=== PATIENT | male | born 1990 | race Caucasian/White ===

== ENCOUNTER 2017-04-03 11:14 | Inpatient (IN) | payer OTHER ==
[~2017-04-03] VITALS: Ht 177.8 cm; Wt 90.3 kg
[2017-04-03] MEDS ORDERED: ACETAMINOPHEN 325 MG TABLET PO PRN (13:30)
[2017-04-03] MEDS ORDERED: LACTULOSE 20 GM/30 ML SOLUTION UDCUP PO PRN (14:00)
[2017-04-03] MEDS ORDERED: BISACODYL 5 MG EC TABLET PO PRN (14:00)
[2017-04-03] MEDS ORDERED: ONDANSETRON HCL 4 MG TABLET PO PRN (14:30)
[2017-04-03] MEDS ORDERED: MINERAL OIL/PETROLATUM,WHITE PF 3.5 GM OPHTHALMIC OINTMENT OU PRN (14:30)
[2017-04-03] MEDS: OxyCODONE HCL 5 MG IR TABLET PO SCH ×2 (14:49→19:28)
[2017-04-03 14:50] VITALS: BP 132/86
[2017-04-03 15:50] VITALS: BP 146/78
[2017-04-03] MEDS: HEPARIN SODIUM,PORCINE 5,000 UNITS/ML VIAL SQ SCH (15:58)
[2017-04-03] MEDS: SODIUM CHLORIDE 1 GM TABLET PO SCH ×2 (15:59→20:15)
[2017-04-03] MEDS: IBUPROFEN 400 MG TABLET PO SCH (17:28)
[2017-04-03] MEDS ORDERED: SODIUM CL IRRIG SOLN BOTTLE 250 ML IRRIG ONE (19:22)
[2017-04-03 20:00] VITALS: BP 143/83
[2017-04-03] MEDS: -LIDODERM PATCH NOTE- MISC SCH ×2 (20:15)
[2017-04-03] MEDS: METOPROLOL TARTRATE 50 MG TABLET PO SCH (20:15)
[2017-04-03] MEDS: SENNA 187 MG TABLET PO SCH (20:15)
[2017-04-03] MEDS: DiphenhydrAMINE HCL 25 MG CAPSULE PO PRN (21:09)
[2017-04-03 21:21] LABS: APPEARANCE,URINE CLEAR (CLEAR); GLUCOSE, URINE (UA) NEGATIVE (NEGATIVE); KETONES,URINE NEGATIVE (NEGATIVE); LEUKOCYTE ESTERASE ,URINE NEGATIVE (NEGATIVE); OCCULT BLOOD,URINE NEGATIVE (NEGATIVE); PROTEIN,URINE NEGATIVE (NEGATIVE)
[2017-04-03 21:23] LABS: ADD UA MICROSCOPIC NO
[2017-04-04] VITALS: BP 142/76
[2017-04-04] MEDS: HEPARIN SODIUM,PORCINE 5,000 UNITS/ML VIAL SQ SCH ×4 (00:20→23:10)
[2017-04-04] MEDS: OxyCODONE HCL 5 MG IR TABLET PO SCH ×2 (00:20→06:00)
[2017-04-04] MEDS: IBUPROFEN 400 MG TABLET PO SCH ×5 (00:20→23:10)
[2017-04-04] MEDS: LORazepam 0.5 MG TABLET PO PRN ×2 (02:42→20:46)
[2017-04-04 06:57] LABS: BASOPHILS # (AUTO) 0.05 K/uL (0.00-0.20); BASOPHILS % (AUTO) 0.6 % (0.0-2.0); EOSINOPHILS # (AUTO) 0.13 K/uL (0.00-0.70); HEMATOCRIT 28.5 % (41-53); HEMOGLOBIN 9.3 g/dL (13.5-17.5); LYMPHOCYTES # (AUTO) 1.7 K/uL (1.0-4.8); LYMPHOCYTES % (AUTO) 19.2 % (22.0-44.0); MEAN CORPUSCULAR HEMOGLOBIN 28.5 pg (26.0-34.0); MEAN CORPUSCULAR HGB CONC 32.6 G/dL (31.0-37.0); MEAN CORPUSCULAR VOLUME 87 fL (80-100); MONOCYTES # (AUTO) 0.7 K/uL (0.1-1.0); MONOCYTES % (AUTO) 7.7 % (2.0-9.0); NEUTROPHILS # (AUTO) 6.1 K/uL (1.8-7.7); NEUTROPHILS % (AUTO) 71.1 % (40.0-70.0); PLATELET COUNT (AUTO) 295 K/uL (150-450); RED BLOOD CELL COUNT(AUTO) 3.26 MIL/uL (4.50-5.90); RED CELL DISTRIBUTION WIDTH 16.7 % (11.5-14.5); WHITE BLOOD COUNT (AUTO) 8.6 K/uL (4.5-11.0)
[2017-04-04 07:09] LABS: ALANINE AMINOTRANSFERASE 40 U/L (12-78); ALBUMIN 2.6 g/dL (3.4-5.0); ANION GAP 8 mmol/L (8-16); ASPARTATE AMINOTRANSFERASE 15 U/L (15-37); BILIRUBIN,TOTAL 0.7 mg/dL (0.1-1.0); CARBON DIOXIDE 28 mmol/L (22-29); CHLORIDE 100 mmol/L (98-107); CREATININE 0.79 mg/dL (0.60-1.30); GLOMERULAR FILTR. RATE CALC > 60 mL/min (>60); POTASSIUM 3.9 mmol/L (3.5-5.1); SODIUM SERUM 136 mmol/L (136-145); TOTAL PROTEIN, SERUM 7.2 g/dL (6.4-8.2); UREA NITROGEN, BLOOD 11 mg/dL (7-18)
[2017-04-04 07:35] VITALS: BP 142/76
[2017-04-04] MEDS: DOCUSATE SODIUM 100 MG CAPSULE PO SCH ×2 (09:21→20:40)
[2017-04-04] MEDS: OxyCODONE HCL 10 MG ER TABLET PO SCH ×2 (09:21→20:39)
[2017-04-04] MEDS: METOPROLOL TARTRATE 50 MG TABLET PO SCH ×2 (10:13→20:40)
[2017-04-04] MEDS: LIDOCAINE HCL 5% TRANSDERMAL PATCH TD SCH (10:13)
[2017-04-04] MEDS: SODIUM CHLORIDE 1 GM TABLET PO SCH ×3 (10:13→20:39)
[2017-04-04] MEDS: ACETIC ACID 0.25% 1000 ML IRRIGATION SOLUTION IRRIG SCH (10:18)
[2017-04-04] MEDS: OxyCODONE HCL 5 MG IR TABLET PO PRN ×2 (11:25→21:57)
[2017-04-04 15:25] VITALS: BP 130/71
[2017-04-04 20:14] VITALS: BP 145/89
[2017-04-04] MEDS: SENNA 187 MG TABLET PO SCH (20:40)
[2017-04-04] MEDS: -LIDODERM PATCH NOTE- MISC SCH ×2 (20:40)
[2017-04-04] MEDS: DiphenhydrAMINE HCL 25 MG CAPSULE PO PRN (20:47)
[2017-04-04 23:46] VITALS: BP 140/79
[2017-04-05] VITALS (7 sets, daily range): BP systolic 140–160; BP diastolic 77–92
[2017-04-05] MEDS: IBUPROFEN 400 MG TABLET PO SCH ×4 (05:01→23:37)
[2017-04-05] MEDS: OxyCODONE HCL 5 MG IR TABLET PO PRN ×2 (07:42→21:56)
[2017-04-05] MEDS: HEPARIN SODIUM,PORCINE 5,000 UNITS/ML VIAL SQ SCH ×3 (08:00→10:16)
[2017-04-05] MEDS: SODIUM CHLORIDE 1 GM TABLET PO SCH ×3 (10:17→21:05)
[2017-04-05] MEDS: METOPROLOL TARTRATE 50 MG TABLET PO SCH ×2 (10:17→21:05)
[2017-04-05] MEDS: OxyCODONE HCL 10 MG ER TABLET PO SCH ×2 (10:17→21:05)
[2017-04-05] MEDS: DOCUSATE SODIUM 100 MG CAPSULE PO SCH ×2 (10:17→21:05)
[2017-04-05] MEDS: LIDOCAINE HCL 5% TRANSDERMAL PATCH TD SCH (10:17)
[2017-04-05] MEDS: ACETIC ACID 0.25% 1000 ML IRRIGATION SOLUTION IRRIG SCH (10:19)
[2017-04-05] MEDS: SENNA 187 MG TABLET PO SCH (21:05)
[2017-04-05] MEDS: ENOXAPARIN SODIUM 30 MG/0.3 ML PF SYRINGE SQ SCH (21:06)
[2017-04-05] MEDS: -LIDODERM PATCH NOTE- MISC SCH ×2 (22:22)
[2017-04-05] MEDS: TEMAZEPAM 15 MG CAPSULE PO PRN (22:32)
[2017-04-06] MEDS: IBUPROFEN 400 MG TABLET PO SCH ×4 (05:31→23:40)
[2017-04-06 07:00] VITALS: BP 154/93
[2017-04-06 07:20] LABS: ANION GAP 10 mmol/L (8-16); CALCIUM, TOTAL 9.1 mg/dL (8.8-10.5); CARBON DIOXIDE 26 mmol/L (22-29); CHLORIDE 101 mmol/L (98-107); CREATININE 0.78 mg/dL (0.60-1.30); GLOMERULAR FILTR. RATE CALC > 60 mL/min (>60); POTASSIUM 3.8 mmol/L (3.5-5.1); SODIUM SERUM 137 mmol/L (136-145); UREA NITROGEN, BLOOD 7 mg/dL (7-18)
[2017-04-06] MEDS: ASCORBIC ACID 500 MG TABLET PO SCH (09:14)
[2017-04-06] MEDS: OxyCODONE HCL 5 MG IR TABLET PO PRN ×2 (09:15→12:46)
[2017-04-06] MEDS: DOCUSATE SODIUM 100 MG CAPSULE PO SCH ×2 (09:15→21:00)
[2017-04-06] MEDS: ENOXAPARIN SODIUM 30 MG/0.3 ML PF SYRINGE SQ SCH ×2 (09:16→21:01)
[2017-04-06] MEDS: METOCLOPRAMIDE HCL 10 MG TABLET PO PRN (09:18)
[2017-04-06] MEDS: LIDOCAINE HCL 5% TRANSDERMAL PATCH TD SCH (09:18)
[2017-04-06] MEDS: SODIUM CHLORIDE 1 GM TABLET PO SCH ×3 (09:18→21:01)
[2017-04-06] MEDS: ZINC SULFATE 220 MG CAPSULE PO SCH (09:19)
[2017-04-06] MEDS: METOPROLOL TARTRATE 50 MG TABLET PO SCH ×2 (09:21→21:00)
[2017-04-06] MEDS: MULTIVITAMINS WITH MINERALS, THERAPEUTIC TABLET PO SCH (09:21)
[2017-04-06] MEDS: OxyCODONE HCL 10 MG ER TABLET PO SCH ×2 (09:24→21:00)
[2017-04-06] MEDS: ACETIC ACID 0.25% 1000 ML IRRIGATION SOLUTION IRRIG SCH (09:25)
[2017-04-06 16:02] VITALS: BP 147/98
[2017-04-06 20:56] VITALS: BP 152/86
[2017-04-06] MEDS: SENNA 187 MG TABLET PO SCH (21:00)
[2017-04-06] MEDS: -LIDODERM PATCH NOTE- MISC SCH ×2 (21:00)
[2017-04-06] MEDS: TEMAZEPAM 15 MG CAPSULE PO PRN (23:40)
[2017-04-07 00:27] VITALS: BP 152/86
[2017-04-07] MEDS: OxyCODONE HCL 5 MG IR TABLET PO PRN ×4 (01:40→23:32)
[2017-04-07] MEDS: IBUPROFEN 400 MG TABLET PO SCH ×4 (06:31→23:31)
[2017-04-07 07:54] VITALS: BP 127/85
[2017-04-07] MEDS: OxyCODONE HCL 10 MG ER TABLET PO SCH ×2 (13:08→21:29)
[2017-04-07] MEDS: DOCUSATE SODIUM 100 MG CAPSULE PO SCH ×2 (13:08→21:29)
[2017-04-07] MEDS: ZINC SULFATE 220 MG CAPSULE PO SCH (13:08)
[2017-04-07] MEDS: METOPROLOL TARTRATE 50 MG TABLET PO SCH ×2 (13:08→21:30)
[2017-04-07] MEDS: SODIUM CHLORIDE 1 GM TABLET PO SCH ×3 (13:08→21:30)
[2017-04-07] MEDS: MULTIVITAMINS WITH MINERALS, THERAPEUTIC TABLET PO SCH (13:08)
[2017-04-07] MEDS: ASCORBIC ACID 500 MG TABLET PO SCH (13:08)
[2017-04-07] MEDS: LIDOCAINE HCL 5% TRANSDERMAL PATCH TD SCH (13:09)
[2017-04-07] MEDS: ACETIC ACID 0.25% 1000 ML IRRIGATION SOLUTION IRRIG SCH (13:09)
[2017-04-07] MEDS: ENOXAPARIN SODIUM 30 MG/0.3 ML PF SYRINGE SQ SCH ×2 (13:12→21:29)
[2017-04-07 16:45] VITALS: BP 136/81
[2017-04-07] MEDS: SENNA 187 MG TABLET PO SCH (21:29)
[2017-04-07 21:30] VITALS: BP 147/87
[2017-04-07] MEDS: -LIDODERM PATCH NOTE- MISC SCH ×2 (21:30)
[2017-04-07] MEDS: TEMAZEPAM 15 MG CAPSULE PO PRN (21:31)
[2017-04-07 23:32] VITALS: BP 132/74
[2017-04-08] MEDS: IBUPROFEN 400 MG TABLET PO SCH ×4 (06:29→23:02)
[2017-04-08 07:46] VITALS: BP 140/77
[2017-04-08] MEDS: OxyCODONE HCL 10 MG ER TABLET PO SCH ×3 (08:13→23:02)
[2017-04-08] MEDS: MULTIVITAMINS WITH MINERALS, THERAPEUTIC TABLET PO SCH (08:13)
[2017-04-08] MEDS: DOCUSATE SODIUM 100 MG CAPSULE PO SCH ×2 (08:15→21:20)
[2017-04-08] MEDS: ASCORBIC ACID 500 MG TABLET PO SCH (08:15)
[2017-04-08] MEDS: ENOXAPARIN SODIUM 30 MG/0.3 ML PF SYRINGE SQ SCH ×2 (08:15→21:19)
[2017-04-08] MEDS: LIDOCAINE HCL 5% TRANSDERMAL PATCH TD SCH (08:16)
[2017-04-08] MEDS: ZINC SULFATE 220 MG CAPSULE PO SCH (08:17)
[2017-04-08] MEDS: SODIUM CHLORIDE 1 GM TABLET PO SCH ×3 (08:17→22:15)
[2017-04-08] MEDS: METOPROLOL TARTRATE 50 MG TABLET PO SCH ×2 (08:17→21:20)
[2017-04-08] MEDS: OxyCODONE HCL 5 MG IR TABLET PO PRN ×2 (11:52→22:01)
[2017-04-08] MEDS: ACETIC ACID 0.25% 1000 ML IRRIGATION SOLUTION IRRIG SCH (11:52)
[2017-04-08] MEDS ORDERED: SODIUM CL IRRIG SOLN BOTTLE 250 ML IRRIG ONE (12:36)
[2017-04-08 15:50] VITALS: BP 120/92
[2017-04-08 21:20] VITALS: BP 163/94
[2017-04-08] MEDS: SENNA 187 MG TABLET PO SCH (21:20)
[2017-04-08] MEDS: -LIDODERM PATCH NOTE- MISC SCH ×2 (21:20)
[2017-04-08 22:00] VITALS: BP 160/93
[2017-04-08 23:00] VITALS: BP 156/91
[2017-04-09] VITALS: BP 139/62
[2017-04-09] MEDS: IBUPROFEN 400 MG TABLET PO SCH ×4 (06:16→23:17)
[2017-04-09 07:10] VITALS: BP 160/78
[2017-04-09 07:12] LABS: ANION GAP 10 mmol/L (8-16); CALCIUM, TOTAL 9.2 mg/dL (8.8-10.5); CARBON DIOXIDE 26 mmol/L (22-29); CHLORIDE 101 mmol/L (98-107); CREATININE 0.76 mg/dL (0.60-1.30); GLOMERULAR FILTR. RATE CALC > 60 mL/min (>60); POTASSIUM 4.3 mmol/L (3.5-5.1); SODIUM SERUM 137 mmol/L (136-145); UREA NITROGEN, BLOOD 11 mg/dL (7-18)
[2017-04-09 08:50] VITALS: BP 158/94
[2017-04-09] MEDS: METOPROLOL TARTRATE 50 MG TABLET PO SCH ×2 (08:51→20:46)
[2017-04-09] MEDS: LIDOCAINE HCL 5% TRANSDERMAL PATCH TD SCH (08:51)
[2017-04-09] MEDS: ZINC SULFATE 220 MG CAPSULE PO SCH (08:51)
[2017-04-09] MEDS: ENOXAPARIN SODIUM 30 MG/0.3 ML PF SYRINGE SQ SCH ×3 (08:51→20:54)
[2017-04-09] MEDS: ASCORBIC ACID 500 MG TABLET PO SCH (08:52)
[2017-04-09] MEDS: DOCUSATE SODIUM 100 MG CAPSULE PO SCH ×2 (08:52→20:38)
[2017-04-09] MEDS: MULTIVITAMINS WITH MINERALS, THERAPEUTIC TABLET PO SCH (08:52)
[2017-04-09] MEDS: SODIUM CHLORIDE 1 GM TABLET PO SCH ×3 (08:52→20:38)
[2017-04-09] MEDS: OxyCODONE HCL 10 MG ER TABLET PO SCH ×3 (08:52→23:17)
[2017-04-09] MEDS: ACETIC ACID 0.25% 1000 ML IRRIGATION SOLUTION IRRIG SCH (08:53)
[2017-04-09 15:00] VITALS: BP 157/89
[2017-04-09] MEDS: VITAMINS A & D 60 GM OINTMENT TP SCH (20:37)
[2017-04-09] MEDS: OxyCODONE HCL 5 MG IR TABLET PO PRN (20:38)
[2017-04-09] MEDS: SENNA 187 MG TABLET PO SCH (20:38)
[2017-04-09] MEDS: -LIDODERM PATCH NOTE- MISC SCH ×2 (20:39)
[2017-04-09 20:40] VITALS: BP 155/95
[2017-04-09 23:15] VITALS: BP 154/93
[2017-04-10] MEDS: OxyCODONE HCL 5 MG IR TABLET PO PRN ×2 (04:23→21:09)
[2017-04-10] MEDS: IBUPROFEN 400 MG TABLET PO SCH ×4 (06:22→23:03)
[2017-04-10 08:00] VITALS: BP_SYST 142; BP_SYST 162; BP_DIAS 69; BP_DIAS 96
[2017-04-10] MEDS: METOPROLOL TARTRATE 50 MG TABLET PO SCH ×2 (08:04→21:09)
[2017-04-10] MEDS: ZINC SULFATE 220 MG CAPSULE PO SCH (08:04)
[2017-04-10] MEDS: MULTIVITAMINS WITH MINERALS, THERAPEUTIC TABLET PO SCH (08:04)
[2017-04-10] MEDS: SODIUM CHLORIDE 1 GM TABLET PO SCH ×3 (08:04→21:09)
[2017-04-10] MEDS: LIDOCAINE HCL 5% TRANSDERMAL PATCH TD SCH (08:05)
[2017-04-10] MEDS: DOCUSATE SODIUM 100 MG CAPSULE PO SCH ×2 (08:05→21:09)
[2017-04-10] MEDS: MINERAL OIL/PETROLATUM 120 GM CREAM TP SCH (08:05)
[2017-04-10] MEDS: ASCORBIC ACID 500 MG TABLET PO SCH (08:05)
[2017-04-10] MEDS: OxyCODONE HCL 10 MG ER TABLET PO SCH ×3 (08:05→23:03)
[2017-04-10] MEDS: ENOXAPARIN SODIUM 30 MG/0.3 ML PF SYRINGE SQ SCH ×2 (08:06→21:00)
[2017-04-10] MEDS: VITAMINS A & D 60 GM OINTMENT TP SCH (08:07)
[2017-04-10] MEDS ORDERED: SILVER 45 ML GEL TP SCH (09:00)
[2017-04-10 15:15] VITALS: BP 149/73
[2017-04-10 21:07] VITALS: BP 172/80
[2017-04-10] MEDS: SENNA 187 MG TABLET PO SCH (21:09)
[2017-04-10] MEDS: -LIDODERM PATCH NOTE- MISC SCH ×2 (21:24)
[2017-04-10 22:00] VITALS: BP 155/93
[2017-04-11 00:59] VITALS: BP 156/96
[2017-04-11] MEDS: OxyCODONE HCL 5 MG IR TABLET PO PRN ×3 (02:58→21:56)
[2017-04-11] MEDS: IBUPROFEN 400 MG TABLET PO SCH ×2 (05:39→12:00)
[2017-04-11 06:00] VITALS: BP 138/92
[2017-04-11 07:18] VITALS: BP 156/87
[2017-04-11] MEDS: OxyCODONE HCL 10 MG ER TABLET PO SCH ×3 (07:18→23:04)
[2017-04-11] MEDS: VITAMINS A & D 60 GM OINTMENT TP SCH (07:22)
[2017-04-11] MEDS: MINERAL OIL/PETROLATUM 120 GM CREAM TP SCH ×2 (08:58→16:00)
[2017-04-11] MEDS: LIDOCAINE HCL 5% TRANSDERMAL PATCH TD SCH (08:59)
[2017-04-11] MEDS: ENOXAPARIN SODIUM 30 MG/0.3 ML PF SYRINGE SQ SCH ×3 (08:59→21:00)
[2017-04-11] MEDS: METOPROLOL TARTRATE 50 MG TABLET PO SCH ×2 (09:00→20:48)
[2017-04-11] MEDS: ZINC SULFATE 220 MG CAPSULE PO SCH (09:00)
[2017-04-11] MEDS: ASCORBIC ACID 500 MG TABLET PO SCH (09:00)
[2017-04-11] MEDS: SODIUM CHLORIDE 1 GM TABLET PO SCH ×3 (09:00→20:48)
[2017-04-11] MEDS: DOCUSATE SODIUM 100 MG CAPSULE PO SCH ×2 (09:01→20:48)
[2017-04-11] MEDS: MULTIVITAMINS WITH MINERALS, THERAPEUTIC TABLET PO SCH (09:01)
[2017-04-11] MEDS ORDERED: FAMOTIDINE 20 MG TABLET PO ONE (13:45)
[2017-04-11 15:19] VITALS: BP 150/81
[2017-04-11 20:45] VITALS: BP 142/76
[2017-04-11] MEDS: SENNA 187 MG TABLET PO SCH (20:48)
[2017-04-11] MEDS: -LIDODERM PATCH NOTE- MISC SCH ×2 (20:49)
[2017-04-11] MEDS: SILVER 45 ML GEL TP SCH (21:56)
[2017-04-11 23:00] VITALS: BP 154/94
[2017-04-12] MEDS: OxyCODONE HCL 5 MG IR TABLET PO PRN ×2 (02:01→21:17)
[2017-04-12 06:43] LABS: BASOPHILS % (AUTO) 0.6 % (0.0-2.0); EOSINOPHILS % (AUTO) 2.2 % (1.0-6.0); HEMOGLOBIN 10.4 g/dL (13.5-17.5); LYMPHOCYTES # (AUTO) 1.3 K/uL (1.0-4.8); LYMPHOCYTES % (AUTO) 14.6 % (22.0-44.0); MEAN CORPUSCULAR HEMOGLOBIN 28.7 pg (26.0-34.0); MEAN CORPUSCULAR HGB CONC 33.5 G/dL (31.0-37.0); MEAN CORPUSCULAR VOLUME 86 fL (80-100); MONOCYTES # (AUTO) 0.7 K/uL (0.1-1.0); MONOCYTES % (AUTO) 8.1 % (2.0-9.0); NEUTROPHILS # (AUTO) 6.8 K/uL (1.8-7.7); NEUTROPHILS % (AUTO) 74.5 % (40.0-70.0); PLATELET COUNT (AUTO) 302 K/uL (150-450); RED BLOOD CELL COUNT(AUTO) 3.62 MIL/uL (4.50-5.90); RED CELL DISTRIBUTION WIDTH 16.5 % (11.5-14.5); WHITE BLOOD COUNT (AUTO) 9.2 K/uL (4.5-11.0)
[2017-04-12 09:16] VITALS: BP 148/85
[2017-04-12] MEDS: LIDOCAINE HCL 5% TRANSDERMAL PATCH TD SCH ×2 (10:51→16:18)
[2017-04-12] MEDS: OxyCODONE HCL 10 MG ER TABLET PO SCH ×3 (10:52→23:22)
[2017-04-12] MEDS: METOPROLOL TARTRATE 50 MG TABLET PO SCH ×2 (10:53→21:21)
[2017-04-12] MEDS: SODIUM CHLORIDE 1 GM TABLET PO SCH ×3 (10:54→21:18)
[2017-04-12] MEDS: ASCORBIC ACID 500 MG TABLET PO SCH (10:54)
[2017-04-12] MEDS: FAMOTIDINE 20 MG TABLET PO SCH (10:54)
[2017-04-12] MEDS: DOCUSATE SODIUM 100 MG CAPSULE PO SCH ×2 (10:54→21:18)
[2017-04-12] MEDS: ZINC SULFATE 220 MG CAPSULE PO SCH (10:54)
[2017-04-12] MEDS: MULTIVITAMINS WITH MINERALS, THERAPEUTIC TABLET PO SCH (10:54)
[2017-04-12] MEDS: ENOXAPARIN SODIUM 30 MG/0.3 ML PF SYRINGE SQ SCH ×2 (10:55→21:16)
[2017-04-12] MEDS: VITAMINS A & D 60 GM OINTMENT TP SCH (11:11)
[2017-04-12 15:07] VITALS: BP 131/85
[2017-04-12] MEDS: SILVER 45 ML GEL TP SCH (16:18)
[2017-04-12] MEDS: MINERAL OIL/PETROLATUM 120 GM CREAM TP SCH (16:19)
[2017-04-12 20:20] VITALS: BP 143/85
[2017-04-12] MEDS ORDERED: -LIDODERM PATCH NOTE- MISC SCH ×2 (21:00)
[2017-04-12] MEDS: SENNA 187 MG TABLET PO SCH (21:16)
[2017-04-12] MEDS: -LIDODERM PATCH NOTE- MISC SCH ×2 (21:16)
[2017-04-12] MEDS: LORazepam 0.5 MG TABLET PO SCH (21:16)
[2017-04-12] MEDS: VALSARTAN 80 MG TABLET PO SCH (21:19)
[2017-04-13 00:34] VITALS: BP 133/69
[2017-04-13 06:22] LABS: ANION GAP 9 mmol/L (8-16); CALCIUM, TOTAL 9.4 mg/dL (8.8-10.5); CARBON DIOXIDE 27 mmol/L (22-29); CHLORIDE 98 mmol/L (98-107); CREATININE 0.79 mg/dL (0.60-1.30); GLOMERULAR FILTR. RATE CALC > 60 mL/min (>60); POTASSIUM 3.8 mmol/L (3.5-5.1); SODIUM SERUM 134 mmol/L (136-145); UREA NITROGEN, BLOOD 8 mg/dL (7-18)
[2017-04-13 07:30] VITALS: BP 143/90
[2017-04-13] MEDS: OxyCODONE HCL 10 MG ER TABLET PO SCH ×3 (09:01→23:30)
[2017-04-13] MEDS: ENOXAPARIN SODIUM 30 MG/0.3 ML PF SYRINGE SQ SCH ×2 (09:04→21:02)
[2017-04-13] MEDS: METOPROLOL TARTRATE 50 MG TABLET PO SCH ×2 (09:04→21:02)
[2017-04-13] MEDS: DOCUSATE SODIUM 100 MG CAPSULE PO SCH ×2 (09:04→21:01)
[2017-04-13] MEDS: ASCORBIC ACID 500 MG TABLET PO SCH (09:04)
[2017-04-13] MEDS: SODIUM CHLORIDE 1 GM TABLET PO SCH ×3 (09:04→21:03)
[2017-04-13] MEDS: ZINC SULFATE 220 MG CAPSULE PO SCH (09:04)
[2017-04-13] MEDS: FAMOTIDINE 20 MG TABLET PO SCH (09:04)
[2017-04-13] MEDS: MULTIVITAMINS WITH MINERALS, THERAPEUTIC TABLET PO SCH (09:04)
[2017-04-13] MEDS: LIDOCAINE HCL 5% TRANSDERMAL PATCH TD SCH ×2 (09:05)
[2017-04-13] MEDS: VITAMINS A & D 60 GM OINTMENT TP SCH (09:05)
[2017-04-13] MEDS: GABAPENTIN 300 MG CAPSULE PO SCH ×3 (11:34→21:01)
[2017-04-13 15:25] VITALS: BP 143/82
[2017-04-13] MEDS: MINERAL OIL/PETROLATUM 120 GM CREAM TP SCH (15:35)
[2017-04-13] MEDS: SILVER 45 ML GEL TP SCH (15:36)
[2017-04-13] MEDS: LORazepam 0.5 MG TABLET PO SCH (21:01)
[2017-04-13] MEDS: SENNA 187 MG TABLET PO SCH (21:01)
[2017-04-13] MEDS: -LIDODERM PATCH NOTE- MISC SCH ×2 (21:02)
[2017-04-13] MEDS: VALSARTAN 80 MG TABLET PO SCH (21:02)
[2017-04-13] MEDS: MELATONIN 3 MG TABLET PO SCH (21:02)
[2017-04-13 23:30] VITALS: BP 124/73
[2017-04-14] MEDS: OxyCODONE HCL 5 MG IR TABLET PO PRN (02:08)
[2017-04-14 07:27] VITALS: BP 135/79
[2017-04-14] MEDS: OxyCODONE HCL 10 MG ER TABLET PO SCH ×3 (07:27→23:36)
[2017-04-14] MEDS: VITAMINS A & D 60 GM OINTMENT TP SCH (09:17)
[2017-04-14] MEDS: ENOXAPARIN SODIUM 30 MG/0.3 ML PF SYRINGE SQ SCH ×2 (09:17→20:50)
[2017-04-14] MEDS: LIDOCAINE HCL 5% TRANSDERMAL PATCH TD SCH ×2 (09:17→09:18)
[2017-04-14] MEDS: METOPROLOL TARTRATE 50 MG TABLET PO SCH ×2 (09:18→20:50)
[2017-04-14] MEDS: ZINC SULFATE 220 MG CAPSULE PO SCH (09:18)
[2017-04-14] MEDS: FAMOTIDINE 20 MG TABLET PO SCH (09:18)
[2017-04-14] MEDS: ASCORBIC ACID 500 MG TABLET PO SCH (09:18)
[2017-04-14] MEDS: MULTIVITAMINS WITH MINERALS, THERAPEUTIC TABLET PO SCH (09:18)
[2017-04-14] MEDS: GABAPENTIN 300 MG CAPSULE PO SCH ×3 (09:18→20:49)
[2017-04-14] MEDS: SODIUM CHLORIDE 1 GM TABLET PO SCH ×3 (09:18→20:50)
[2017-04-14] MEDS: DOCUSATE SODIUM 100 MG CAPSULE PO SCH ×2 (09:18→20:49)
[2017-04-14] MEDS: SILVER 45 ML GEL TP SCH (16:00)
[2017-04-14 16:10] VITALS: BP 131/78
[2017-04-14] MEDS: MINERAL OIL/PETROLATUM 120 GM CREAM TP SCH (17:11)
[2017-04-14] MEDS: LORazepam 0.5 MG TABLET PO SCH (20:49)
[2017-04-14] MEDS: SENNA 187 MG TABLET PO SCH (20:49)
[2017-04-14] MEDS: MELATONIN 3 MG TABLET PO SCH (20:50)
[2017-04-14] MEDS: VALSARTAN 80 MG TABLET PO SCH (20:50)
[2017-04-14 21:00] VITALS: BP 144/92
[2017-04-14] MEDS: -LIDODERM PATCH NOTE- MISC SCH ×2 (21:18)
[2017-04-14 23:35] VITALS: BP 137/85
[2017-04-15 07:05] VITALS: BP 145/98
[2017-04-15] MEDS: OxyCODONE HCL 10 MG ER TABLET PO SCH ×3 (07:07→23:03)
[2017-04-15] MEDS: LIDOCAINE HCL 5% TRANSDERMAL PATCH TD SCH ×2 (07:57)
[2017-04-15] MEDS: MULTIVITAMINS WITH MINERALS, THERAPEUTIC TABLET PO SCH (07:58)
[2017-04-15] MEDS: ENOXAPARIN SODIUM 30 MG/0.3 ML PF SYRINGE SQ SCH ×2 (07:58→21:24)
[2017-04-15] MEDS: FAMOTIDINE 20 MG TABLET PO SCH (07:58)
[2017-04-15] MEDS: SODIUM CHLORIDE 1 GM TABLET PO SCH ×3 (07:58→21:26)
[2017-04-15] MEDS: VITAMINS A & D 60 GM OINTMENT TP SCH (07:58)
[2017-04-15] MEDS: ASCORBIC ACID 500 MG TABLET PO SCH (07:58)
[2017-04-15] MEDS: GABAPENTIN 300 MG CAPSULE PO SCH ×3 (07:58→21:25)
[2017-04-15] MEDS: ZINC SULFATE 220 MG CAPSULE PO SCH (07:58)
[2017-04-15] MEDS: METOPROLOL TARTRATE 50 MG TABLET PO SCH ×2 (07:59→21:25)
[2017-04-15] MEDS: DOCUSATE SODIUM 100 MG CAPSULE PO SCH ×2 (07:59→21:25)
[2017-04-15 16:30] VITALS: BP 142/83
[2017-04-15] MEDS: SILVER 45 ML GEL TP SCH (16:45)
[2017-04-15] MEDS: MINERAL OIL/PETROLATUM 120 GM CREAM TP SCH (16:47)
[2017-04-15] MEDS ORDERED: SODIUM CL IRRIG SOLN BOTTLE 250 ML IRRIG ONE (16:54)
[2017-04-15] MEDS: LORazepam 0.5 MG TABLET PO SCH (21:25)
[2017-04-15] MEDS: VALSARTAN 160 MG TABLET PO SCH (21:25)
[2017-04-15] MEDS: SENNA 187 MG TABLET PO SCH (21:26)
[2017-04-15] MEDS: -LIDODERM PATCH NOTE- MISC SCH ×2 (21:26)
[2017-04-15] MEDS: MELATONIN 3 MG TABLET PO SCH (21:26)
[2017-04-15 23:37] VITALS: BP 123/74
[2017-04-16 09:00] VITALS: BP 146/86
[2017-04-16] MEDS: LIDOCAINE HCL 5% TRANSDERMAL PATCH TD SCH ×2 (09:07)
[2017-04-16] MEDS: OxyCODONE HCL 10 MG ER TABLET PO SCH ×3 (09:08→23:13)
[2017-04-16] MEDS: ZINC SULFATE 220 MG CAPSULE PO SCH (09:08)
[2017-04-16] MEDS: METOPROLOL TARTRATE 50 MG TABLET PO SCH ×2 (09:08→21:19)
[2017-04-16] MEDS: ENOXAPARIN SODIUM 30 MG/0.3 ML PF SYRINGE SQ SCH ×2 (09:08→21:21)
[2017-04-16] MEDS: FAMOTIDINE 20 MG TABLET PO SCH (09:08)
[2017-04-16] MEDS: DOCUSATE SODIUM 100 MG CAPSULE PO SCH ×2 (09:08→21:19)
[2017-04-16] MEDS: ASCORBIC ACID 500 MG TABLET PO SCH (09:08)
[2017-04-16] MEDS: MULTIVITAMINS WITH MINERALS, THERAPEUTIC TABLET PO SCH (09:08)
[2017-04-16] MEDS: SODIUM CHLORIDE 1 GM TABLET PO SCH ×3 (09:08→21:20)
[2017-04-16] MEDS: GABAPENTIN 300 MG CAPSULE PO SCH ×3 (09:08→21:21)
[2017-04-16] MEDS: VITAMINS A & D 60 GM OINTMENT TP SCH (09:09)
[2017-04-16] MEDS: SILVER 45 ML GEL TP SCH (16:58)
[2017-04-16] MEDS: MINERAL OIL/PETROLATUM 120 GM CREAM TP SCH (16:59)
[2017-04-16 21:10] VITALS: BP 146/93
[2017-04-16] MEDS: VALSARTAN 160 MG TABLET PO SCH (21:19)
[2017-04-16] MEDS: SENNA 187 MG TABLET PO SCH (21:22)
[2017-04-16] MEDS: LORazepam 0.5 MG TABLET PO SCH (21:23)
[2017-04-16] MEDS: MELATONIN 3 MG TABLET PO SCH (21:23)
[2017-04-16] MEDS: -LIDODERM PATCH NOTE- MISC SCH ×2 (21:23)
[2017-04-16 23:25] VITALS: BP 137/79
[2017-04-17] MEDS: OxyCODONE HCL 5 MG IR TABLET PO PRN ×2 (04:25→21:50)
[2017-04-17 07:40] VITALS: BP 149/89
[2017-04-17] MEDS: ENOXAPARIN SODIUM 30 MG/0.3 ML PF SYRINGE SQ SCH ×2 (08:58→21:22)
[2017-04-17] MEDS: LIDOCAINE HCL 5% TRANSDERMAL PATCH TD SCH ×2 (08:59→09:00)
[2017-04-17] MEDS: DOCUSATE SODIUM 100 MG CAPSULE PO SCH ×2 (08:59→21:22)
[2017-04-17] MEDS: METOPROLOL TARTRATE 50 MG TABLET PO SCH ×2 (09:00→21:23)
[2017-04-17] MEDS: MULTIVITAMINS WITH MINERALS, THERAPEUTIC TABLET PO SCH (09:00)
[2017-04-17] MEDS: GABAPENTIN 300 MG CAPSULE PO SCH ×3 (09:00→21:22)
[2017-04-17] MEDS: ZINC SULFATE 220 MG CAPSULE PO SCH (09:00)
[2017-04-17] MEDS: ASCORBIC ACID 500 MG TABLET PO SCH (09:00)
[2017-04-17] MEDS: FAMOTIDINE 20 MG TABLET PO SCH (09:00)
[2017-04-17] MEDS: OxyCODONE HCL 10 MG ER TABLET PO SCH ×3 (09:00→23:09)
[2017-04-17] MEDS: SODIUM CHLORIDE 1 GM TABLET PO SCH ×3 (09:00→21:23)
[2017-04-17] MEDS: VITAMINS A & D 60 GM OINTMENT TP SCH (10:16)
[2017-04-17 15:28] VITALS: BP 126/71
[2017-04-17] MEDS: MINERAL OIL/PETROLATUM 120 GM CREAM TP SCH (15:54)
[2017-04-17 21:00] VITALS: BP 140/89
[2017-04-17] MEDS: VALSARTAN 160 MG TABLET PO SCH (21:22)
[2017-04-17] MEDS: SENNA 187 MG TABLET PO SCH (21:22)
[2017-04-17] MEDS: -LIDODERM PATCH NOTE- MISC SCH ×2 (21:23)
[2017-04-17] MEDS: MELATONIN 3 MG TABLET PO SCH (21:50)
[2017-04-17] MEDS: LORazepam 0.5 MG TABLET PO SCH (21:50)
[2017-04-18 00:57] VITALS: BP 151/81
[2017-04-18 07:50] VITALS: BP 139/79
[2017-04-18] MEDS: MULTIVITAMINS WITH MINERALS, THERAPEUTIC TABLET PO SCH (08:59)
[2017-04-18] MEDS: GABAPENTIN 300 MG CAPSULE PO SCH ×3 (08:59→21:15)
[2017-04-18] MEDS: ENOXAPARIN SODIUM 30 MG/0.3 ML PF SYRINGE SQ SCH ×2 (08:59→21:14)
[2017-04-18] MEDS: DOCUSATE SODIUM 100 MG CAPSULE PO SCH ×2 (08:59→21:15)
[2017-04-18] MEDS: FAMOTIDINE 20 MG TABLET PO SCH (09:00)
[2017-04-18] MEDS: OxyCODONE HCL 10 MG ER TABLET PO SCH ×3 (09:00→23:23)
[2017-04-18] MEDS: ZINC SULFATE 220 MG CAPSULE PO SCH (09:00)
[2017-04-18] MEDS: METOPROLOL TARTRATE 50 MG TABLET PO SCH ×2 (09:00→21:15)
[2017-04-18] MEDS: SODIUM CHLORIDE 1 GM TABLET PO SCH ×3 (09:00→21:14)
[2017-04-18] MEDS: ASCORBIC ACID 500 MG TABLET PO SCH (09:00)
[2017-04-18] MEDS: LIDOCAINE HCL 5% TRANSDERMAL PATCH TD SCH ×2 (09:15)
[2017-04-18 15:00] VITALS: BP 128/66
[2017-04-18] MEDS: MINERAL OIL/PETROLATUM 120 GM CREAM TP SCH (15:33)
[2017-04-18] MEDS: OxyCODONE HCL 5 MG IR TABLET PO PRN (19:41)
[2017-04-18 21:15] VITALS: BP 125/72
[2017-04-18] MEDS: VALSARTAN 160 MG TABLET PO SCH (21:15)
[2017-04-18] MEDS: SENNA 187 MG TABLET PO SCH (21:15)
[2017-04-18] MEDS: MELATONIN 3 MG TABLET PO SCH (21:15)
[2017-04-18] MEDS: LORazepam 0.5 MG TABLET PO SCH (21:15)
[2017-04-18] MEDS: -LIDODERM PATCH NOTE- MISC SCH ×2 (21:44)
[2017-04-18 23:20] VITALS: BP 141/80
[2017-04-19] MEDS: METOPROLOL TARTRATE 50 MG TABLET PO SCH ×2 (08:56→21:03)
[2017-04-19] MEDS: GABAPENTIN 300 MG CAPSULE PO SCH ×3 (08:56→21:03)
[2017-04-19] MEDS: ZINC SULFATE 220 MG CAPSULE PO SCH (08:56)
[2017-04-19] MEDS: ENOXAPARIN SODIUM 30 MG/0.3 ML PF SYRINGE SQ SCH ×2 (08:56→21:04)
[2017-04-19] MEDS: MULTIVITAMINS WITH MINERALS, THERAPEUTIC TABLET PO SCH (08:56)
[2017-04-19] MEDS: FAMOTIDINE 20 MG TABLET PO SCH (08:56)
[2017-04-19] MEDS: SODIUM CHLORIDE 1 GM TABLET PO SCH ×3 (08:56→21:02)
[2017-04-19] MEDS: OxyCODONE HCL 10 MG ER TABLET PO SCH ×3 (08:56→23:34)
[2017-04-19] MEDS: DOCUSATE SODIUM 100 MG CAPSULE PO SCH ×2 (08:56→21:03)
[2017-04-19] MEDS: ASCORBIC ACID 500 MG TABLET PO SCH (08:56)
[2017-04-19] MEDS: LIDOCAINE HCL 5% TRANSDERMAL PATCH TD SCH ×2 (08:57→08:58)
[2017-04-19 09:58] VITALS: BP 139/74
[2017-04-19] MEDS: METOCLOPRAMIDE HCL 10 MG TABLET PO PRN (11:42)
[2017-04-19] MEDS: MINERAL OIL/PETROLATUM 120 GM CREAM TP SCH (15:38)
[2017-04-19 15:40] VITALS: BP 148/80
[2017-04-19] MEDS: HYDROCORTISONE 2.5% 30 GM CREAM TP SCH (21:02)
[2017-04-19] MEDS: VALSARTAN 160 MG TABLET PO SCH (21:02)
[2017-04-19] MEDS: TRIAMCINOLONE 0.5% 15 GM CREAM TP SCH (21:02)
[2017-04-19 21:03] VITALS: BP 135/72
[2017-04-19] MEDS: SENNA 187 MG TABLET PO SCH (21:03)
[2017-04-19] MEDS: MELATONIN 3 MG TABLET PO SCH (21:03)
[2017-04-19] MEDS: LORazepam 0.5 MG TABLET PO SCH (21:03)
[2017-04-19] MEDS: -LIDODERM PATCH NOTE- MISC SCH ×2 (21:32)
[2017-04-19 23:10] VITALS: BP 141/86
[2017-04-20 08:00] VITALS: BP 137/87
[2017-04-20] MEDS: OxyCODONE HCL 10 MG ER TABLET PO SCH ×3 (08:44→23:18)
[2017-04-20] MEDS: FAMOTIDINE 20 MG TABLET PO SCH (08:44)
[2017-04-20] MEDS: GABAPENTIN 300 MG CAPSULE PO SCH ×3 (08:44→21:50)
[2017-04-20] MEDS: MULTIVITAMINS WITH MINERALS, THERAPEUTIC TABLET PO SCH (08:44)
[2017-04-20] MEDS: TRIAMCINOLONE 0.5% 15 GM CREAM TP SCH ×2 (08:44→21:50)
[2017-04-20] MEDS: ASCORBIC ACID 500 MG TABLET PO SCH (08:44)
[2017-04-20] MEDS: DOCUSATE SODIUM 100 MG CAPSULE PO SCH ×2 (08:44→21:50)
[2017-04-20] MEDS: HYDROCORTISONE 2.5% 30 GM CREAM TP SCH ×2 (08:44→21:50)
[2017-04-20] MEDS: LIDOCAINE HCL 5% TRANSDERMAL PATCH TD SCH ×2 (08:45)
[2017-04-20] MEDS: ENOXAPARIN SODIUM 30 MG/0.3 ML PF SYRINGE SQ SCH ×2 (08:45→21:50)
[2017-04-20] MEDS: METOPROLOL TARTRATE 50 MG TABLET PO SCH ×2 (08:46→21:52)
[2017-04-20] MEDS: ZINC SULFATE 220 MG CAPSULE PO SCH (08:46)
[2017-04-20] MEDS: SODIUM CHLORIDE 1 GM TABLET PO SCH ×3 (08:46→21:51)
[2017-04-20 16:12] VITALS: BP 132/78
[2017-04-20] MEDS: MINERAL OIL/PETROLATUM 120 GM CREAM TP SCH (16:26)
[2017-04-20] MEDS: OxyCODONE HCL 5 MG IR TABLET PO PRN (19:13)
[2017-04-20 21:50] VITALS: BP 131/73
[2017-04-20] MEDS: -LIDODERM PATCH NOTE- MISC SCH ×2 (21:50)
[2017-04-20] MEDS: SENNA 187 MG TABLET PO SCH (21:50)
[2017-04-20] MEDS: LORazepam 0.5 MG TABLET PO SCH (21:51)
[2017-04-20] MEDS: MELATONIN 3 MG TABLET PO SCH (21:51)
[2017-04-20] MEDS: VALSARTAN 160 MG TABLET PO SCH (21:52)
[2017-04-21 00:40] VITALS: BP 124/77
[2017-04-21] MEDS: OxyCODONE HCL 5 MG IR TABLET PO PRN ×3 (05:50→17:47)
[2017-04-21 07:40] VITALS: BP 135/81
[2017-04-21] MEDS: FERROUS GLUCONATE 324 MG TABLET PO SCH (08:47)
[2017-04-21] MEDS: FAMOTIDINE 20 MG TABLET PO SCH (08:49)
[2017-04-21] MEDS: OxyCODONE HCL 10 MG ER TABLET PO SCH ×3 (08:49→23:33)
[2017-04-21] MEDS: ENOXAPARIN SODIUM 30 MG/0.3 ML PF SYRINGE SQ SCH ×2 (08:49→20:50)
[2017-04-21] MEDS: ASCORBIC ACID 500 MG TABLET PO SCH (08:49)
[2017-04-21] MEDS: GABAPENTIN 300 MG CAPSULE PO SCH ×3 (08:49→20:49)
[2017-04-21] MEDS: HYDROCORTISONE 2.5% 30 GM CREAM TP SCH ×2 (08:49→20:50)
[2017-04-21] MEDS: METOPROLOL TARTRATE 50 MG TABLET PO SCH ×2 (08:49→20:50)
[2017-04-21] MEDS: DOCUSATE SODIUM 100 MG CAPSULE PO SCH ×2 (08:49→20:49)
[2017-04-21] MEDS: MULTIVITAMINS WITH MINERALS, THERAPEUTIC TABLET PO SCH (08:49)
[2017-04-21] MEDS: SODIUM CHLORIDE 1 GM TABLET PO SCH ×3 (08:49→20:48)
[2017-04-21] MEDS: TRIAMCINOLONE 0.5% 15 GM CREAM TP SCH ×2 (08:49→20:50)
[2017-04-21] MEDS: LIDOCAINE HCL 5% TRANSDERMAL PATCH TD SCH ×2 (08:50)
[2017-04-21 15:32] VITALS: BP 137/81
[2017-04-21] MEDS: MINERAL OIL/PETROLATUM 120 GM CREAM TP SCH (16:44)
[2017-04-21 20:46] VITALS: BP 134/87
[2017-04-21] MEDS: -LIDODERM PATCH NOTE- MISC SCH ×2 (20:48)
[2017-04-21] MEDS: LORazepam 0.5 MG TABLET PO SCH (20:49)
[2017-04-21] MEDS: MELATONIN 3 MG TABLET PO SCH (20:49)
[2017-04-21] MEDS: VALSARTAN 160 MG TABLET PO SCH (20:50)
[2017-04-21] MEDS: SENNA 187 MG TABLET PO SCH (20:50)
[2017-04-22 01:18] VITALS: BP 110/71
[2017-04-22] MEDS: OxyCODONE HCL 5 MG IR TABLET PO PRN ×3 (04:36→22:21)
[2017-04-22 07:20] LABS: BASOPHILS # (AUTO) 0.08 K/uL (0.00-0.20); BASOPHILS % (AUTO) 1.1 % (0.0-2.0); EOSINOPHILS % (AUTO) 2.63 % (1.0-6.0); HEMATOCRIT 33.1 % (41-53); HEMOGLOBIN 10.7 g/dL (13.5-17.5); LYMPHOCYTES # (AUTO) 1.5 K/uL (1.0-4.8); LYMPHOCYTES % (AUTO) 19.5 % (22.0-44.0); MEAN CORPUSCULAR HEMOGLOBIN 27.3 pg (26.0-34.0); MEAN CORPUSCULAR HGB CONC 32.4 G/dL (31.0-37.0); MEAN CORPUSCULAR VOLUME 84 fL (80-100); MONOCYTES # (AUTO) 0.6 K/uL (0.1-1.0); MONOCYTES % (AUTO) 7.8 % (2.0-9.0); NEUTROPHILS # (AUTO) 5.4 K/uL (1.8-7.7); NEUTROPHILS % (AUTO) 69.1 % (40.0-70.0); PLATELET COUNT (AUTO) 280 K/uL (150-450); RED BLOOD CELL COUNT(AUTO) 3.93 MIL/uL (4.50-5.90); RED CELL DISTRIBUTION WIDTH 16.3 % (11.5-14.5); WHITE BLOOD COUNT (AUTO) 7.8 K/uL (4.5-11.0)
[2017-04-22 07:34] LABS: ALANINE AMINOTRANSFERASE 30 U/L (12-78); ALBUMIN 2.9 g/dL (3.4-5.0); ANION GAP 9 mmol/L (8-16); ASPARTATE AMINOTRANSFERASE 13 U/L (15-37); BILIRUBIN,TOTAL 0.3 mg/dL (0.1-1.0); CALCIUM, TOTAL 9.2 mg/dL (8.8-10.5); CARBON DIOXIDE 26 mmol/L (22-29); CHLORIDE 101 mmol/L (98-107); CREATININE 0.74 mg/dL (0.60-1.30); GLOMERULAR FILTR. RATE CALC > 60 mL/min (>60); POTASSIUM 3.7 mmol/L (3.5-5.1); SODIUM SERUM 136 mmol/L (136-145); TOTAL PROTEIN, SERUM 7.3 g/dL (6.4-8.2); UREA NITROGEN, BLOOD 11 mg/dL (7-18)
[2017-04-22 07:55] VITALS: BP 142/82
[2017-04-22] MEDS: LIDOCAINE HCL 5% TRANSDERMAL PATCH TD SCH ×2 (08:33→08:34)
[2017-04-22] MEDS: OxyCODONE HCL 10 MG ER TABLET PO SCH ×3 (08:33→23:59)
[2017-04-22] MEDS: FERROUS GLUCONATE 324 MG TABLET PO SCH (08:33)
[2017-04-22] MEDS: METOPROLOL TARTRATE 50 MG TABLET PO SCH ×2 (08:34→21:02)
[2017-04-22] MEDS: TRIAMCINOLONE 0.5% 15 GM CREAM TP SCH ×2 (08:34→21:18)
[2017-04-22] MEDS: ASCORBIC ACID 500 MG TABLET PO SCH (08:34)
[2017-04-22] MEDS: DOCUSATE SODIUM 100 MG CAPSULE PO SCH ×2 (08:34→21:02)
[2017-04-22] MEDS: GABAPENTIN 300 MG CAPSULE PO SCH ×3 (08:34→21:02)
[2017-04-22] MEDS: ENOXAPARIN SODIUM 30 MG/0.3 ML PF SYRINGE SQ SCH ×2 (08:34→21:03)
[2017-04-22] MEDS: MULTIVITAMINS WITH MINERALS, THERAPEUTIC TABLET PO SCH (08:34)
[2017-04-22] MEDS: FAMOTIDINE 20 MG TABLET PO SCH (08:34)
[2017-04-22] MEDS: SODIUM CHLORIDE 1 GM TABLET PO SCH ×3 (08:34→21:02)
[2017-04-22] MEDS: HYDROCORTISONE 2.5% 30 GM CREAM TP SCH ×2 (08:35→21:18)
[2017-04-22 15:00] VITALS: BP 136/72
[2017-04-22] MEDS: MINERAL OIL/PETROLATUM 120 GM CREAM TP SCH (16:00)
[2017-04-22 21:00] VITALS: BP 151/89
[2017-04-22] MEDS: LORazepam 0.5 MG TABLET PO SCH (21:02)
[2017-04-22] MEDS: SENNA 187 MG TABLET PO SCH (21:02)
[2017-04-22] MEDS: VALSARTAN 160 MG TABLET PO SCH (21:03)
[2017-04-22] MEDS: MELATONIN 3 MG TABLET PO SCH (21:06)
[2017-04-22] MEDS: FLUOCINONIDE 0.05% 15 GM CREAM TP PRN (21:07)
[2017-04-22] MEDS: -LIDODERM PATCH NOTE- MISC SCH ×2 (21:18)
[2017-04-23] VITALS: BP 125/68
[2017-04-23 08:00] VITALS: BP 139/89
[2017-04-23] MEDS: METOPROLOL TARTRATE 50 MG TABLET PO SCH ×2 (09:30→21:16)
[2017-04-23] MEDS: GABAPENTIN 300 MG CAPSULE PO SCH ×3 (09:30→21:16)
[2017-04-23] MEDS: OxyCODONE HCL 10 MG ER TABLET PO SCH ×3 (09:31→23:47)
[2017-04-23] MEDS: FERROUS GLUCONATE 324 MG TABLET PO SCH (09:31)
[2017-04-23] MEDS: FAMOTIDINE 20 MG TABLET PO SCH (09:31)
[2017-04-23] MEDS: SODIUM CHLORIDE 1 GM TABLET PO SCH ×3 (09:31→21:17)
[2017-04-23] MEDS: DOCUSATE SODIUM 100 MG CAPSULE PO SCH ×2 (09:31→21:16)
[2017-04-23] MEDS: ASCORBIC ACID 500 MG TABLET PO SCH (09:31)
[2017-04-23] MEDS: ENOXAPARIN SODIUM 30 MG/0.3 ML PF SYRINGE SQ SCH ×2 (09:31→21:16)
[2017-04-23] MEDS: MULTIVITAMINS WITH MINERALS, THERAPEUTIC TABLET PO SCH (09:31)
[2017-04-23] MEDS: LIDOCAINE HCL 5% TRANSDERMAL PATCH TD SCH ×2 (09:32→09:33)
[2017-04-23] MEDS: HYDROCORTISONE 2.5% 30 GM CREAM TP SCH ×2 (09:58→21:17)
[2017-04-23] MEDS: TRIAMCINOLONE 0.5% 15 GM CREAM TP SCH ×2 (09:58→21:17)
[2017-04-23] MEDS: VITAMINS A & D 60 GM OINTMENT TP PRN ×2 (12:14→15:27)
[2017-04-23] MEDS: FLUOCINONIDE 0.05% 15 GM CREAM TP PRN (12:15)
[2017-04-23 15:00] VITALS: BP 100/69
[2017-04-23] MEDS: MINERAL OIL/PETROLATUM 120 GM CREAM TP SCH (15:42)
[2017-04-23] MEDS: OxyCODONE HCL 5 MG IR TABLET PO PRN (18:09)
[2017-04-23 21:11] VITALS: BP 153/80
[2017-04-23] MEDS: -LIDODERM PATCH NOTE- MISC SCH ×2 (21:12)
[2017-04-23] MEDS: SENNA 187 MG TABLET PO SCH (21:16)
[2017-04-23] MEDS: LORazepam 0.5 MG TABLET PO SCH (21:16)
[2017-04-23] MEDS: MELATONIN 3 MG TABLET PO SCH (21:17)
[2017-04-23] MEDS: VALSARTAN 160 MG TABLET PO SCH (21:17)
[2017-04-23 23:45] VITALS: BP 107/59
[2017-04-24] MEDS: OxyCODONE HCL 5 MG IR TABLET PO PRN ×3 (03:59→21:54)
[2017-04-24] MEDS: VITAMINS A & D 60 GM OINTMENT TP PRN ×3 (04:01→13:17)
[2017-04-24 08:55] VITALS: BP 147/78
[2017-04-24] MEDS: GABAPENTIN 300 MG CAPSULE PO SCH ×3 (09:05→21:53)
[2017-04-24] MEDS: FERROUS GLUCONATE 324 MG TABLET PO SCH (09:06)
[2017-04-24] MEDS: OxyCODONE HCL 10 MG ER TABLET PO SCH ×3 (09:06→23:40)
[2017-04-24] MEDS: SODIUM CHLORIDE 1 GM TABLET PO SCH ×3 (09:25→21:54)
[2017-04-24] MEDS: ASCORBIC ACID 500 MG TABLET PO SCH (09:26)
[2017-04-24] MEDS: METOPROLOL TARTRATE 50 MG TABLET PO SCH ×2 (09:26→21:54)
[2017-04-24] MEDS: DOCUSATE SODIUM 100 MG CAPSULE PO SCH ×2 (09:26→21:53)
[2017-04-24] MEDS: ENOXAPARIN SODIUM 30 MG/0.3 ML PF SYRINGE SQ SCH ×2 (09:26→21:53)
[2017-04-24] MEDS: MULTIVITAMINS WITH MINERALS, THERAPEUTIC TABLET PO SCH (09:26)
[2017-04-24] MEDS: LIDOCAINE HCL 5% TRANSDERMAL PATCH TD SCH ×2 (09:26)
[2017-04-24] MEDS: FAMOTIDINE 20 MG TABLET PO SCH (09:26)
[2017-04-24] MEDS: HYDROCORTISONE 2.5% 30 GM CREAM TP SCH ×2 (09:27→21:55)
[2017-04-24] MEDS: TRIAMCINOLONE 0.5% 15 GM CREAM TP SCH ×2 (09:27→21:55)
[2017-04-24 15:22] VITALS: BP 128/78
[2017-04-24] MEDS: MINERAL OIL/PETROLATUM 120 GM CREAM TP SCH (16:00)
[2017-04-24] MEDS: SENNA 187 MG TABLET PO SCH (21:53)
[2017-04-24] MEDS: LORazepam 0.5 MG TABLET PO SCH (21:53)
[2017-04-24] MEDS: MELATONIN 3 MG TABLET PO SCH (21:54)
[2017-04-24] MEDS: VALSARTAN 160 MG TABLET PO SCH (21:54)
[2017-04-24] MEDS: -LIDODERM PATCH NOTE- MISC SCH ×2 (21:55)
[2017-04-24 23:39] VITALS: BP 132/75
[2017-04-25 09:00] VITALS: BP 141/82
[2017-04-25] MEDS: HYDROCORTISONE 2.5% 30 GM CREAM TP SCH ×2 (09:06→20:54)
[2017-04-25] MEDS: ENOXAPARIN SODIUM 30 MG/0.3 ML PF SYRINGE SQ SCH ×2 (09:06→20:50)
[2017-04-25] MEDS: LIDOCAINE HCL 5% TRANSDERMAL PATCH TD SCH ×2 (09:06)
[2017-04-25] MEDS: TRIAMCINOLONE 0.5% 15 GM CREAM TP SCH ×2 (09:06→20:54)
[2017-04-25] MEDS: VITAMINS A & D 60 GM OINTMENT TP PRN (09:06)
[2017-04-25] MEDS: METOPROLOL TARTRATE 50 MG TABLET PO SCH ×2 (09:07→20:51)
[2017-04-25] MEDS: ASCORBIC ACID 500 MG TABLET PO SCH (09:07)
[2017-04-25] MEDS: DULoxetine HCL 30 MG CAPSULE PO SCH (09:07)
[2017-04-25] MEDS: FAMOTIDINE 20 MG TABLET PO SCH (09:07)
[2017-04-25] MEDS: OxyCODONE HCL 10 MG ER TABLET PO SCH ×3 (09:07→23:27)
[2017-04-25] MEDS: DOCUSATE SODIUM 100 MG CAPSULE PO SCH ×2 (09:07→20:51)
[2017-04-25] MEDS: GABAPENTIN 300 MG CAPSULE PO SCH ×3 (09:07→20:50)
[2017-04-25] MEDS: FERROUS GLUCONATE 324 MG TABLET PO SCH (09:07)
[2017-04-25] MEDS: SODIUM CHLORIDE 1 GM TABLET PO SCH ×3 (09:07→20:52)
[2017-04-25] MEDS: MULTIVITAMINS WITH MINERALS, THERAPEUTIC TABLET PO SCH (09:07)
[2017-04-25] MEDS: MINERAL OIL/PETROLATUM 120 GM CREAM TP SCH (15:36)
[2017-04-25 18:13] VITALS: BP 136/79
[2017-04-25] MEDS: VALSARTAN 160 MG TABLET PO SCH (20:51)
[2017-04-25] MEDS: MELATONIN 3 MG TABLET PO SCH (20:51)
[2017-04-25] MEDS: OxyCODONE HCL 5 MG IR TABLET PO PRN (20:51)
[2017-04-25] MEDS: SENNA 187 MG TABLET PO SCH (20:53)
[2017-04-25] MEDS: LORazepam 0.5 MG TABLET PO SCH (20:54)
[2017-04-25 20:58] VITALS: BP 143/80
[2017-04-25] MEDS: -LIDODERM PATCH NOTE- MISC SCH ×2 (20:58)
[2017-04-25 23:29] VITALS: BP 130/71
[2017-04-26 07:20] VITALS: BP 145/92
[2017-04-26] MEDS: VITAMINS A & D 60 GM OINTMENT TP PRN ×2 (07:42→10:50)
[2017-04-26] MEDS: LIDOCAINE HCL 5% TRANSDERMAL PATCH TD SCH ×2 (10:06→10:07)
[2017-04-26] MEDS: ASCORBIC ACID 500 MG TABLET PO SCH (10:07)
[2017-04-26] MEDS: METOPROLOL TARTRATE 50 MG TABLET PO SCH ×2 (10:07→20:49)
[2017-04-26] MEDS: MULTIVITAMINS WITH MINERALS, THERAPEUTIC TABLET PO SCH (10:07)
[2017-04-26] MEDS: TRIAMCINOLONE 0.5% 15 GM CREAM TP SCH ×2 (10:07→20:49)
[2017-04-26] MEDS: HYDROCORTISONE 2.5% 30 GM CREAM TP SCH ×2 (10:07→20:49)
[2017-04-26] MEDS: SODIUM CHLORIDE 1 GM TABLET PO SCH ×3 (10:07→20:49)
[2017-04-26] MEDS: ENOXAPARIN SODIUM 30 MG/0.3 ML PF SYRINGE SQ SCH ×2 (10:07→20:47)
[2017-04-26] MEDS: DOCUSATE SODIUM 100 MG CAPSULE PO SCH ×2 (10:07→20:48)
[2017-04-26] MEDS: OxyCODONE HCL 10 MG ER TABLET PO SCH ×3 (10:07→23:56)
[2017-04-26] MEDS: FERROUS GLUCONATE 324 MG TABLET PO SCH (10:07)
[2017-04-26] MEDS: DULoxetine HCL 30 MG CAPSULE PO SCH (10:07)
[2017-04-26] MEDS: GABAPENTIN 300 MG CAPSULE PO SCH ×3 (10:07→20:47)
[2017-04-26] MEDS: FAMOTIDINE 20 MG TABLET PO SCH (10:07)
[2017-04-26 15:24] VITALS: BP 130/75
[2017-04-26] MEDS: MINERAL OIL/PETROLATUM 120 GM CREAM TP SCH (17:05)
[2017-04-26 20:46] VITALS: BP 138/74
[2017-04-26] MEDS: LORazepam 0.5 MG TABLET PO SCH (20:47)
[2017-04-26] MEDS: SENNA 187 MG TABLET PO SCH (20:47)
[2017-04-26] MEDS: OxyCODONE HCL 5 MG IR TABLET PO PRN (20:47)
[2017-04-26] MEDS: MELATONIN 3 MG TABLET PO SCH (20:49)
[2017-04-26] MEDS: -LIDODERM PATCH NOTE- MISC SCH ×2 (20:49)
[2017-04-26] MEDS: VALSARTAN 160 MG TABLET PO SCH (20:49)
[2017-04-26 23:55] VITALS: BP 125/69
[2017-04-27] MEDS: OxyCODONE HCL 5 MG IR TABLET PO PRN ×3 (06:50→20:29)
[2017-04-27 07:50] VITALS: BP 150/87
[2017-04-27] MEDS: OxyCODONE HCL 10 MG ER TABLET PO SCH ×3 (08:00→16:03)
[2017-04-27] MEDS: SODIUM CHLORIDE 1 GM TABLET PO SCH ×4 (09:00→20:30)
[2017-04-27] MEDS: GABAPENTIN 300 MG CAPSULE PO SCH ×4 (09:00→20:29)
[2017-04-27] MEDS: FAMOTIDINE 20 MG TABLET PO SCH (09:36)
[2017-04-27] MEDS: ASCORBIC ACID 500 MG TABLET PO SCH (09:36)
[2017-04-27] MEDS: MULTIVITAMINS WITH MINERALS, THERAPEUTIC TABLET PO SCH (09:36)
[2017-04-27] MEDS: FERROUS GLUCONATE 324 MG TABLET PO SCH (09:36)
[2017-04-27] MEDS: DULoxetine HCL 30 MG CAPSULE PO SCH (09:36)
[2017-04-27] MEDS: ENOXAPARIN SODIUM 30 MG/0.3 ML PF SYRINGE SQ SCH (09:37)
[2017-04-27] MEDS: DOCUSATE SODIUM 100 MG CAPSULE PO SCH ×2 (09:37→20:29)
[2017-04-27] MEDS: METOPROLOL TARTRATE 50 MG TABLET PO SCH ×2 (09:37→20:30)
[2017-04-27] MEDS: LIDOCAINE HCL 5% TRANSDERMAL PATCH TD SCH ×2 (09:38→09:39)
[2017-04-27] MEDS: TRIAMCINOLONE 0.5% 15 GM CREAM TP SCH ×2 (09:39→20:31)
[2017-04-27] MEDS: HYDROCORTISONE 2.5% 30 GM CREAM TP SCH ×2 (09:39→20:31)
[2017-04-27] MEDS: VITAMINS A & D 60 GM OINTMENT TP PRN (09:49)
[2017-04-27 15:48] VITALS: BP 130/75
[2017-04-27] MEDS: MINERAL OIL/PETROLATUM 120 GM CREAM TP SCH (16:04)
[2017-04-27] MEDS: APIXABAN 2.5 MG TABLET PO SCH (20:29)
[2017-04-27] MEDS: LORazepam 0.5 MG TABLET PO SCH (20:29)
[2017-04-27] MEDS: SENNA 187 MG TABLET PO SCH (20:29)
[2017-04-27] MEDS: VALSARTAN 160 MG TABLET PO SCH (20:30)
[2017-04-27] MEDS: MELATONIN 3 MG TABLET PO SCH (20:30)
[2017-04-27] MEDS: -LIDODERM PATCH NOTE- MISC SCH ×2 (20:31)
[2017-04-27 20:34] VITALS: BP 133/78
[2017-04-28] VITALS: BP 139/66
[2017-04-28] MEDS: OxyCODONE HCL 10 MG ER TABLET PO SCH ×3 (00:09→16:06)
[2017-04-28] MEDS: TRIAMCINOLONE 0.5% 15 GM CREAM TP SCH ×3 (09:00→20:16)
[2017-04-28] MEDS: HYDROCORTISONE 2.5% 30 GM CREAM TP SCH ×3 (09:00→20:16)
[2017-04-28 09:30] VITALS: BP 126/71
[2017-04-28] MEDS: DULoxetine HCL 30 MG CAPSULE PO SCH (09:53)
[2017-04-28] MEDS: DOCUSATE SODIUM 100 MG CAPSULE PO SCH ×2 (09:53→20:15)
[2017-04-28] MEDS: FERROUS GLUCONATE 324 MG TABLET PO SCH (09:53)
[2017-04-28] MEDS: MULTIVITAMINS WITH MINERALS, THERAPEUTIC TABLET PO SCH (09:54)
[2017-04-28] MEDS: APIXABAN 2.5 MG TABLET PO SCH ×2 (09:54→20:15)
[2017-04-28] MEDS: METOPROLOL TARTRATE 50 MG TABLET PO SCH ×2 (09:54→20:16)
[2017-04-28] MEDS: SODIUM CHLORIDE 1 GM TABLET PO SCH ×3 (09:54→20:15)
[2017-04-28] MEDS: FAMOTIDINE 20 MG TABLET PO SCH (09:54)
[2017-04-28] MEDS: ASCORBIC ACID 500 MG TABLET PO SCH (09:54)
[2017-04-28] MEDS: GABAPENTIN 300 MG CAPSULE PO SCH ×3 (09:54→20:15)
[2017-04-28] MEDS: LIDOCAINE HCL 5% TRANSDERMAL PATCH TD SCH ×2 (09:56→09:57)
[2017-04-28] MEDS: VITAMINS A & D 60 GM OINTMENT TP PRN (09:57)
[2017-04-28 15:51] VITALS: BP 135/84
[2017-04-28] MEDS: MINERAL OIL/PETROLATUM 120 GM CREAM TP SCH (16:07)
[2017-04-28] MEDS: OxyCODONE HCL 5 MG IR TABLET PO PRN (17:23)
[2017-04-28 20:13] VITALS: BP 145/87
[2017-04-28] MEDS: LORazepam 0.5 MG TABLET PO SCH (20:15)
[2017-04-28] MEDS: SENNA 187 MG TABLET PO SCH (20:15)
[2017-04-28] MEDS: VALSARTAN 160 MG TABLET PO SCH (20:15)
[2017-04-28] MEDS: -LIDODERM PATCH NOTE- MISC SCH ×2 (20:16)
[2017-04-28] MEDS: MELATONIN 3 MG TABLET PO SCH (20:16)
[2017-04-29] MEDS: OxyCODONE HCL 10 MG ER TABLET PO SCH ×4 (00:13→23:40)
[2017-04-29 00:19] VITALS: BP 126/79
[2017-04-29] MEDS: OxyCODONE HCL 5 MG IR TABLET PO PRN (03:19)
[2017-04-29 07:04] LABS: ANION GAP 12 mmol/L (8-16); CALCIUM, TOTAL 9.3 mg/dL (8.8-10.5); CARBON DIOXIDE 25 mmol/L (22-29); CHLORIDE 101 mmol/L (98-107); CREATININE 0.76 mg/dL (0.60-1.30); GLOMERULAR FILTR. RATE CALC > 60 mL/min (>60); POTASSIUM 4.2 mmol/L (3.5-5.1); SODIUM SERUM 138 mmol/L (136-145); UREA NITROGEN, BLOOD 10 mg/dL (7-18)
[2017-04-29 07:41] LABS: BASOPHILS # (AUTO) 0.08 K/uL (0.00-0.20); EOSINOPHILS # (AUTO) 0.16 K/uL (0.00-0.70); EOSINOPHILS % (AUTO) 1.88 % (1.0-6.0); HEMATOCRIT 35.7 % (41-53); HEMOGLOBIN 11.6 g/dL (13.5-17.5); LYMPHOCYTES # (AUTO) 1.9 K/uL (1.0-4.8); LYMPHOCYTES % (AUTO) 21.5 % (22.0-44.0); MEAN CORPUSCULAR HEMOGLOBIN 27.1 pg (26.0-34.0); MEAN CORPUSCULAR HGB CONC 32.4 G/dL (31.0-37.0); MEAN CORPUSCULAR VOLUME 84 fL (80-100); MONOCYTES # (AUTO) 0.6 K/uL (0.1-1.0); MONOCYTES % (AUTO) 7.3 % (2.0-9.0); NEUTROPHILS # (AUTO) 5.9 K/uL (1.8-7.7); NEUTROPHILS % (AUTO) 68.3 % (40.0-70.0); PLATELET COUNT (AUTO) 268 K/uL (150-450); RED BLOOD CELL COUNT(AUTO) 4.27 MIL/uL (4.50-5.90); WHITE BLOOD COUNT (AUTO) 8.6 K/uL (4.5-11.0)
[2017-04-29] MEDS: GABAPENTIN 300 MG CAPSULE PO SCH ×3 (08:15→21:26)
[2017-04-29] MEDS: MULTIVITAMINS WITH MINERALS, THERAPEUTIC TABLET PO SCH (08:15)
[2017-04-29] MEDS: METOPROLOL TARTRATE 50 MG TABLET PO SCH ×2 (08:16→21:25)
[2017-04-29] MEDS: DOCUSATE SODIUM 100 MG CAPSULE PO SCH ×2 (08:16→21:26)
[2017-04-29] MEDS: SODIUM CHLORIDE 1 GM TABLET PO SCH (08:16)
[2017-04-29] MEDS: ASCORBIC ACID 500 MG TABLET PO SCH (08:16)
[2017-04-29] MEDS: DULoxetine HCL 30 MG CAPSULE PO SCH (08:16)
[2017-04-29] MEDS: FAMOTIDINE 20 MG TABLET PO SCH (08:16)
[2017-04-29] MEDS: FERROUS GLUCONATE 324 MG TABLET PO SCH (08:16)
[2017-04-29] MEDS: APIXABAN 2.5 MG TABLET PO SCH ×2 (08:17→21:26)
[2017-04-29] MEDS: HYDROCORTISONE 2.5% 30 GM CREAM TP SCH ×2 (08:17→21:00)
[2017-04-29] MEDS: TRIAMCINOLONE 0.5% 15 GM CREAM TP SCH ×2 (08:17→21:00)
[2017-04-29] MEDS: LIDOCAINE HCL 5% TRANSDERMAL PATCH TD SCH ×2 (08:18)
[2017-04-29 08:22] VITALS: BP 133/75
[2017-04-29] MEDS: VITAMINS A & D 60 GM OINTMENT TP PRN (08:58)
[2017-04-29 15:20] VITALS: BP 137/75
[2017-04-29] MEDS: MINERAL OIL/PETROLATUM 120 GM CREAM TP SCH (16:00)
[2017-04-29] MEDS: -LIDODERM PATCH NOTE- MISC SCH ×2 (20:35)
[2017-04-29 21:00] VITALS: BP 132/78
[2017-04-29] MEDS: SENNA 187 MG TABLET PO SCH (21:25)
[2017-04-29] MEDS: LORazepam 0.5 MG TABLET PO SCH (21:25)
[2017-04-29] MEDS: VALSARTAN 160 MG TABLET PO SCH (21:25)
[2017-04-29] MEDS: MELATONIN 3 MG TABLET PO SCH (21:26)
[2017-04-29 23:00] VITALS: BP 122/78
[2017-04-30] MEDS: OxyCODONE HCL 5 MG IR TABLET PO PRN (03:53)
[2017-04-30] MEDS: TRIAMCINOLONE 0.5% 15 GM CREAM TP SCH ×3 (09:00→20:42)
[2017-04-30] MEDS: HYDROCORTISONE 2.5% 30 GM CREAM TP SCH ×3 (09:00→20:42)
[2017-04-30] MEDS: FERROUS GLUCONATE 324 MG TABLET PO SCH (09:07)
[2017-04-30 09:08] VITALS: BP 126/73
[2017-04-30] MEDS: APIXABAN 2.5 MG TABLET PO SCH ×2 (09:08→20:42)
[2017-04-30] MEDS: DULoxetine HCL 30 MG CAPSULE PO SCH (09:08)
[2017-04-30] MEDS: DOCUSATE SODIUM 100 MG CAPSULE PO SCH ×2 (09:08→20:42)
[2017-04-30] MEDS: METOPROLOL TARTRATE 50 MG TABLET PO SCH ×2 (09:08→20:42)
[2017-04-30] MEDS: MULTIVITAMINS WITH MINERALS, THERAPEUTIC TABLET PO SCH (09:08)
[2017-04-30] MEDS: OxyCODONE HCL 10 MG ER TABLET PO SCH ×3 (09:08→23:38)
[2017-04-30] MEDS: FAMOTIDINE 20 MG TABLET PO SCH (09:08)
[2017-04-30] MEDS: ASCORBIC ACID 500 MG TABLET PO SCH (09:08)
[2017-04-30] MEDS: GABAPENTIN 300 MG CAPSULE PO SCH ×3 (09:08→20:42)
[2017-04-30] MEDS: LIDOCAINE HCL 5% TRANSDERMAL PATCH TD SCH ×2 (09:18)
[2017-04-30] MEDS ORDERED: GABA-531 PO (15:10)
[2017-04-30] MEDS ORDERED: METO50 PO (15:10)
[2017-04-30] MEDS ORDERED: MULT-248 PO (15:10)
[2017-04-30] MEDS ORDERED: VALS160T2 PO (15:10)
[2017-04-30] MEDS ORDERED: SENN8.6T52 PO (15:10)
[2017-04-30 15:15] VITALS: BP 140/83
[2017-04-30] MEDS ORDERED: FERR-89 PO (15:21)
[2017-04-30] MEDS ORDERED: HYDR28OI10 TP (15:21)
[2017-04-30] MEDS ORDERED: ASCO500 PO (15:21)
[2017-04-30] MEDS ORDERED: LIDO700A TP (15:21)
[2017-04-30] MEDS ORDERED: DULO30CA2 PO (15:21)
[2017-04-30] MEDS ORDERED: OXYC10 PO (15:21)
[2017-04-30] MEDS ORDERED: OXYC10IR PO (15:21)
[2017-04-30] MEDS ORDERED: APIX2.5T PO (15:21)
[2017-04-30] MEDS ORDERED: DSS100 PO (15:21)
[2017-04-30] MEDS ORDERED: TRIA15CR48 TP (15:21)
[2017-04-30] MEDS ORDERED: FAMO20 PO (15:21)
[2017-04-30] MEDS ORDERED: LORA0.5T2 PO (15:21)
[2017-04-30] MEDS ORDERED: PETR113O TP (15:21)
[2017-04-30] MEDS: MINERAL OIL/PETROLATUM 120 GM CREAM TP SCH (16:00)
[2017-04-30] MEDS: MELATONIN 3 MG TABLET PO SCH (20:42)
[2017-04-30] MEDS: SENNA 187 MG TABLET PO SCH (20:42)
[2017-04-30] MEDS: VALSARTAN 160 MG TABLET PO SCH (20:42)
[2017-04-30] MEDS: LORazepam 0.5 MG TABLET PO SCH (20:42)
[2017-04-30] MEDS: -LIDODERM PATCH NOTE- MISC SCH ×2 (20:43)
[2017-05-01] VITALS: BP 124/69
[2017-05-01] MEDS: VITAMINS A & D 60 GM OINTMENT TP PRN (00:01)
[2017-05-01] MEDS: OxyCODONE HCL 5 MG IR TABLET PO PRN (02:15)
[2017-05-01 09:00] VITALS: BP 131/74
[2017-05-01] MEDS: TRIAMCINOLONE 0.5% 15 GM CREAM TP SCH (09:00)
[2017-05-01] MEDS: HYDROCORTISONE 2.5% 30 GM CREAM TP SCH (09:00)
[2017-05-01] MEDS: MULTIVITAMINS WITH MINERALS, THERAPEUTIC TABLET PO SCH (09:33)
[2017-05-01] MEDS: OxyCODONE HCL 10 MG ER TABLET PO SCH (09:33)
[2017-05-01] MEDS: METOPROLOL TARTRATE 50 MG TABLET PO SCH (09:33)
[2017-05-01] MEDS: FERROUS GLUCONATE 324 MG TABLET PO SCH (09:33)
[2017-05-01] MEDS: GABAPENTIN 300 MG CAPSULE PO SCH (09:33)
[2017-05-01] MEDS: APIXABAN 2.5 MG TABLET PO SCH (09:33)
[2017-05-01] MEDS: DULoxetine HCL 30 MG CAPSULE PO SCH (09:33)
[2017-05-01] MEDS: FAMOTIDINE 20 MG TABLET PO SCH (09:33)
[2017-05-01] MEDS: ASCORBIC ACID 500 MG TABLET PO SCH (09:34)
[2017-05-01] MEDS: DOCUSATE SODIUM 100 MG CAPSULE PO SCH (09:34)
[2017-05-01] MEDS: LIDOCAINE HCL 5% TRANSDERMAL PATCH TD SCH ×2 (09:34)
[2017-05-01] MEDS ORDERED: MELA3 PO (10:58)
== END 2017-05-01 13:30 | disposition home health service (06) | DRG 963 ==
LOC: EDBD 13:14 → 2WR 13:14
PROVIDERS: ADMIT Physical Medicine & Rehabilitation; ATTEND Physical Medicine & Rehabilitation
DX: S72.92XA Unspecified fracture of left femur, initial encounter for closed fracture (principal); G82.50 Quadriplegia, unspecified; S32.502A Unspecified fracture of left pubis, initial encounter for closed fracture; S82.201B Unspecified fracture of shaft of right tibia, initial encounter for open fracture type I or II; S82.401B Unspecified fracture of shaft of right fibula, initial encounter for open fracture type I or II; S22.42XA Multiple fractures of ribs, left side, initial encounter for closed fracture; S32.10XA Unspecified fracture of sacrum, initial encounter for closed fracture; S32.301A Unspecified fracture of right ilium, initial encounter for closed fracture; S22.049A Unspecified fracture of fourth thoracic vertebra, initial encounter for closed fracture; S22.059A Unspecified fracture of T5-T6 vertebra, initial encounter for closed fracture; S22.089A Unspecified fracture of T11-T12 vertebra, initial encounter for closed fracture; E87.1 Hypo-osmolality and hyponatremia; F11.20 Opioid dependence, uncomplicated; S54.22XA Injury of radial nerve at forearm level, left arm, initial encounter; T14.8 Other injury of unspecified body region; I10 Essential (primary) hypertension; F32.9 Major depressive disorder, single episode, unspecified; Z74.09 Other reduced mobility; G47.00 Insomnia, unspecified; K59.03 Drug induced constipation; F43.20 Adjustment disorder, unspecified; D64.9 Anemia, unspecified; S14.3XXA Injury of brachial plexus, initial encounter; T40.2X5A Adverse effect of other opioids, initial encounter; F41.9 Anxiety disorder, unspecified; V29.9XXA Motorcycle rider (driver) (passenger) injured in unspecified traffic accident, initial encounter; Y93.89 Activity, other specified; Y92.89 Other specified places as the place of occurrence of the external cause; Y99.8 Other external cause status; Z88.0 Allergy status to penicillin
CPT/HCPCS: 73200; 73552; 83735; 84443; 87081; 92507; 92523; 93970; 97110; 97112; 97163; 97167; 97530; 97535; 97760; 99366; J1644; J1650; Q0162

== ENCOUNTER → 2020-07-26 | Outpatient (CLI) | payer MEDICARE, OTHER ==
[~2020-07-26] MED LIST: APIX2.5T PO; ASCO500 PO; CEFE2I IV; DIPH25 PO; FERR-89 PO; GABA-1181 PO; LORA-999 PO; MULT-248 PO; OXYC10TA59 PO; OXYC20TA58 PO; SENN8.6T52 PO; VANC1PLA10 IVPB
== END | disposition home or self-care (01) ==
LOC: HBOWC 10:09
PROVIDERS: ATTEND Nurse Practitioner Adult Health
DX: T86.820 Skin graft (allograft) rejection (principal); T34 Frostbite with tissue necrosis; L97.811 Non-pressure chronic ulcer of other part of right lower leg limited to breakdown of skin; M86.8X6 Other osteomyelitis, lower leg; F41.9 Anxiety disorder, unspecified; I10 Essential (primary) hypertension; F32.9 Major depressive disorder, single episode, unspecified; G47.00 Insomnia, unspecified; F11.20 Opioid dependence, uncomplicated; G82.50 Quadriplegia, unspecified; E44.0 Moderate protein-calorie malnutrition; Z68.31 Body mass index [BMI] 31.0-31.9, adult; Z87.891 Personal history of nicotine dependence; Z88.0 Allergy status to penicillin; X58.XXXA Exposure to other specified factors, initial encounter; Y93.89 Activity, other specified; Y92.89 Other specified places as the place of occurrence of the external cause; Y99.8 Other external cause status; Y83.2 Surgical operation with anastomosis, bypass or graft as the cause of abnormal reaction of the patient, or of later complication, without mention of misadventure at the time of the procedure; Y92.238 Other place in hospital as the place of occurrence of the external cause
CPT/HCPCS: G0463; Z7500

== ENCOUNTER → 2020-08-09 | Outpatient (CLI) | payer MEDICARE, OTHER | END | disposition home or self-care (01) | LOC: HBOWC 09:53 | PROVIDERS: ATTEND Nurse Practitioner Adult Health | DX: T86.820 Skin graft (allograft) rejection (principal); T34 Frostbite with tissue necrosis; L97.811 Non-pressure chronic ulcer of other part of right lower leg limited to breakdown of skin; M86.8X6 Other osteomyelitis, lower leg; F41.9 Anxiety disorder, unspecified; I10 Essential (primary) hypertension; F32.9 Major depressive disorder, single episode, unspecified; G47.00 Insomnia, unspecified; F11.20 Opioid dependence, uncomplicated; G82.50 Quadriplegia, unspecified; E44.0 Moderate protein-calorie malnutrition; Z68.30 Body mass index [BMI] 30.0-30.9, adult; Z87.891 Personal history of nicotine dependence; Z88.0 Allergy status to penicillin; X58.XXXD Exposure to other specified factors, subsequent encounter; Y83.2 Surgical operation with anastomosis, bypass or graft as the cause of abnormal reaction of the patient, or of later complication, without mention of misadventure at the time of the procedure ==

== ENCOUNTER → 2020-08-16 | Outpatient (CLI) | payer MEDICARE, OTHER | END | disposition home or self-care (01) | LOC: HBOWC 10:53 | PROVIDERS: ATTEND Nurse Practitioner Adult Health | DX: T86.820 Skin graft (allograft) rejection (principal); T34 Frostbite with tissue necrosis; L97.811 Non-pressure chronic ulcer of other part of right lower leg limited to breakdown of skin; M86.8X6 Other osteomyelitis, lower leg; F41.9 Anxiety disorder, unspecified; I10 Essential (primary) hypertension; F32.9 Major depressive disorder, single episode, unspecified; G47.00 Insomnia, unspecified; R26.9 Unspecified abnormalities of gait and mobility; F11.20 Opioid dependence, uncomplicated; G82.50 Quadriplegia, unspecified; E44.0 Moderate protein-calorie malnutrition; Z68.30 Body mass index [BMI] 30.0-30.9, adult; Z87.891 Personal history of nicotine dependence; Z88.0 Allergy status to penicillin; X58.XXXD Exposure to other specified factors, subsequent encounter; Y83.2 Surgical operation with anastomosis, bypass or graft as the cause of abnormal reaction of the patient, or of later complication, without mention of misadventure at the time of the procedure | CPT/HCPCS: G0463; Z7500 ==

== ENCOUNTER → 2020-08-30 | Outpatient (CLI) | payer MEDICARE, OTHER | END | disposition home or self-care (01) | LOC: HBOWC 13:36 | PROVIDERS: ATTEND Nurse Practitioner Adult Health | DX: T86.820 Skin graft (allograft) rejection (principal); T34 Frostbite with tissue necrosis; L97.811 Non-pressure chronic ulcer of other part of right lower leg limited to breakdown of skin; M86.8X6 Other osteomyelitis, lower leg; F41.9 Anxiety disorder, unspecified; I10 Essential (primary) hypertension; F32.9 Major depressive disorder, single episode, unspecified; G47.00 Insomnia, unspecified; R26.9 Unspecified abnormalities of gait and mobility; F11.20 Opioid dependence, uncomplicated; G82.50 Quadriplegia, unspecified; E44.0 Moderate protein-calorie malnutrition; Z68.30 Body mass index [BMI] 30.0-30.9, adult; Z87.891 Personal history of nicotine dependence; Z88.0 Allergy status to penicillin; X58.XXXD Exposure to other specified factors, subsequent encounter; Y83.2 Surgical operation with anastomosis, bypass or graft as the cause of abnormal reaction of the patient, or of later complication, without mention of misadventure at the time of the procedure | CPT/HCPCS: G0463; Z7500 ==